=== PATIENT | female | born 1955 | race Caucasian/White ===

== ENCOUNTER → 2016-09-22 | Outpatient (CLI) | payer OTHER ==
[~2016-09-22] VITALS: Ht 162.6 cm; Wt 88.9 kg
[2016-09-22] VITALS (13 sets, daily range): BP systolic 94–126; BP diastolic 63–81
[~2016-09-22] MED LIST: AMLO2.5T PO; ANAS1TAB3 PO; ARIP2TAB PO; ASPI81TA2 PO; ATOR10TA60 PO; BENZ100C2 PO; BUSP10TA PO; BUSP30TA PO; DULO20CA PO; ERGO2000 PO; FENTANYL PF 250 MCG/5 ML VIAL. IV ONE; FENTANYL PF 250 MCG/5 ML VIAL. ONE; FURO20TA3 PO; HYDR-2678 PO; HYDR25TA PO; HYOS0.124 PO; LIDOCAINE 1% / SOD BICARB 8.4% 20 ML VIAL. IJ ONE; LORA0.5T PO; LORAZEPAM 2 MG/ML VIAL IV ONE; LOSA1TAB18 PO; METO25TA2 PO; MIDAZOLAM HCL/PF 5 MG/5 ML VIAL IV ONE; MIDAZOLAM HCL/PF 5 MG/5 ML VIAL ONE; ONDA-36 PO; ONDA4TAB7 PO; OXYC1TAB7 PO; PANT40TA3 PO; SPIR25TA3 PO; VALA500T PO; VITA1CAP PO; vitamin e
[2016-09-22 07:32] LABS: BASO # 0.1 x10^3/uL (0.0-0.2); BASO % 1 % (0-3); EOS % 6 % (0-3); HEMATOCRIT 39.8 % (36.0-47.0); HEMOGLOBIN 13.3 g/dL (12.0-15.5); LYMPH # 1.4 x10^3/uL (1.0-4.8); LYMPH % 22 % (24-48); MEAN CORPUSCULAR HEMOGLOBIN 31 pg (25-35); MEAN CORPUSCULAR HGB CONC 34 g/dL (31-37); MEAN CORPUSCULAR VOLUME 93 fL (79-100); MONO % 12 % (0-9); NEUT % 60 % (31-73); PLATELET COUNT 316 x10^3/uL (140-400); RED BLOOD COUNT 4.27 x10^6/uL (3.50-5.40); RED CELL DISTRIBUTION WIDTH 15.1 % (11.5-14.5); WHITE BLOOD COUNT 6.3 x10^3/uL (4.0-11.0)
[2016-09-22 07:44] LABS: PROTHROMBIN TIME PATIENT 12.1 SEC (11.7-14.0)
--- NOTE | 2016-09-22 09:17 | PDOC ---
MODERATE SEDATION ASSESSMENT RISKS/ALTERNATIVES Risks/Alternatives Risks and alternatives of this type of sedation and procedure discussed with: RISK/ALTERNATIVES: Patient H & P ON CHART H & P H & P on chart and reviewed for co-morbid conditions and appropriate labs. H&P ON CHART: Yes STATUS PREG STATUS ASSESSED: Yes MEDS/ALLERGIES REVIEWED Meds/Allergies Reviewed Medications and Allergies including time and route of recently administered narcotics and sedatives. MEDS/ALLERGIES REVIEWED: Yes ASA RATING ASA RATING: II AIRWAY ASSESSMENT Airway Assessment Airway patency, oral function limitations, presence of caps, crowns, dentures, partials, and ability to extend neck assessed. AIRWAY ASSESSMENT: Yes MALLAMPATI SCORE MALLAMPATI SCORE: II PRE-SEDATION ASSESSMENT PRE-SEDATION ASSESSMENT: Yes CHELSEA ESPINOZA MD Sep 22, 2016 09:17
--- NOTE | 2016-09-22 09:18 | PDOC1 ---
History and Physical Date of Procedure Date of Admission History of Present Illness Reason for Visit Adult female with blastic lesions at T2 and C6 Past Medical History Past Medical History see nursing pre-op assessment Current Medications Current Medications Current Medications Midazolam HCl (Versed) 5 mg STK-MED ONCE .ROUTE ; Start 09/22/16 at 07:52; Stop 09/22/16 at 07:53; Status DC Fentanyl Citrate (Fentanyl 5ml Vial) 250 mcg STK-MED ONCE .ROUTE ; Start at 07:52; Stop 09/22/16 at 07:53; Status DC Lidocaine/Sodium Bicarbonate (Buffered Lidocaine 1%) 20 ml STK-MED ONCE IJ ; Start 09/22/16 at 07:53; Stop 09/22/16 at 07:54; Status DC Lorazepam (Ativan) 1 mg 1X ONCE IV Last administered on 09/22/16t 08:44; Start 09/22/16 at 08:30; Stop 09/22/16 at 08:31; Status DC Lidocaine/Sodium Bicarbonate (Buffered Lidocaine 1%) 20 ml 1X ONCE IJ ; Start 09/22/16 at 09:00; Stop 09/22/16 at 09:01; Status DC Midazolam HCl (Versed) 3 mg 1X ONCE IV ; Start 09/22/16 at 09:00; Stop at 09:01; Status DC Fentanyl Citrate (Fentanyl 5ml Vial) 150 mcg 1X ONCE IV ; Start 09/22/16 at 09: 00; Stop 09/22/16 at 09:01; Status DC Active Scripts Active Reported Atorvastatin Calcium 10 Mg Tablet 1 Tab PO DAILY Abilify (Aripiprazole) 2 Mg Tablet 2 Mg PO DAILY Vitamin B Complex 1 Each Capsule 1 Each PO DAILY [vitamin e] Valacyclovir (Valacyclovir Hcl) 500 Mg Tablet 1,000 Mg PO Q12HR Spironolactone 25 Mg Tablet 25 Mg PO DAILY Ondansetron Hcl 8 Mg Tablet 8 Mg PO Q8HRS PRN Losartan-Hctz 100-12.5 Mg Tab (Losartan/Hydrochlorothiazide) 1 Each Tablet 1 Each PO DAILY Hyoscyamine Sulfate 0.125 Mg Tablet 0.125 Mg PO PRN Furosemide 20 Mg Tablet 20 Mg PO DAILY Vitamin D2 (Ergocalciferol (Vitamin D2)) 2,000 Unit Tablet 2,000 Unit PO DAILY Buspirone Hcl 10 Mg Tablet 10 Mg PO BID Benzonatate 100 Mg Capsule 100 Mg PO TID PRN Arimidex (Anastrozole) 1 Mg Tablet 1 Mg PO DAILY Lorazepam 0.5 Mg Tablet 0.5 Mg PO Q6HRS PRN Cymbalta (Duloxetine Hcl) 20 Mg Capsule.dr 1 Tab PO BID Protonix (Pantoprazole Sodium) 40 Mg Tablet.dr 1 Tab PO BID Allergies Allergies: Coded Allergies: Tetracyclines (Verified Allergy, Unknown, 09/22/16) adhesive tape (Verified Allergy, Unknown, 09/22/16) Physical Exam Vital Signs Vital Signs Date Time Temp Pulse Resp B/P Pulse Ox O2 Delivery O2 Flow Rate FiO2 09/22/16 09:10 99 15 91 Nasal Cannula 2.0 09/22/16 07:45 98.1 112/81 98.1 Other see nursing pre-op assessment Assessment Assessment Blastic Bone Lesions Problems: Plan Plan Bx of T2 and/or C6 CHELSEA ESPINOZA MD Sep 22, 2016 09:18
--- NOTE | 2016-09-22 09:21 | PDOC ---
BRIEF OPERATIVE NOTE Pre-Op Diagnosis Blastic bone lesions at C6 and T2 Post-Op Diagnosis same Procedure Performed T2 Bone Bx Surgeon Magui Anesthesia Type: Conscious Sedation Specimens Obtained 1 x 10 g core - excellent sampling Findings C6 blastic lesion left paracentral involving the pedicle. Pedicle is too small to accomodate needle safely for posterior biopsy. This lesions could be biopsied from an anterior approach but would be higher risk due to proximity of carotic and vertebral arteries. T2 blastic lesion involving the right pedicle appears stable and was biopsied with a 10g automated bone drill with excellent tissue sample. Complications No immediate CHELSEA ESPINOZA MD Sep 22, 2016 09:21
--- NOTE | 2016-09-22 10:12 | RAD ---
Procedure: CT-guided biopsy of T2 Clinical Indication: 60-year-old with blastic lesions at T2 and C6. The lesion at C6 is unsuitable for posterior biopsy, and is high risk for anterior biopsy. Lesion at T2 is been previously biopsied and was nondiagnostic. Repeat biopsy at T2 is warranted. Sedation: Conscious sedation was administered for 17 minutes. The patient was monitored by a qualified independent observer throughout the time of sedation. Please refer to the medical record for exact doses of medications utilized to achieve moderate sedation. Antibiotics: None Sterility: The procedure was performed in its entirety using appropriate elements of sterile technique. Consent: The procedure was explained in its entirety to the patient or the patients designated circulation sales representative by a member of the treatment team, including a discussion of the risks, benefits and commonly accepted alternatives to the procedure, as well as the expected consequences of no therapy whatsoever. Discussion of the risks included, but was not limited to, those that are most frequent and those that are rare but possibly severe or life-threatening, as well as the possibility of unforeseen complications. Technique and Findings: Following informed consent, the patient was prepped and draped in usual sterile fashion. Preliminary CT scan of the area of interest was performed. 1% lidocaine was used to achieve local anesthesia. A small dermatotomy was made. Under periodic CT surveillance, an automated 10-gauge bone biopsy drill was advanced into the right T2 pedicle to achieve a 1.5 cm 10-gauge bone core which was preserved in formalin. Hemostasis was achieved with manual compression after removal of the needle. Complications: No immediate Impression: 1. CT-guided biopsy of a blastic lesion within the right T2 pedicle using a 10-gauge automated bone core biopsy system with excellent tissue specimen. PQRS Compliance Statement: One or more of the following individualized dose reduction techniques were utilized for this examination: 1. Automated exposure control 2. Adjustment of the mA and/or kV according to patient size 3. Use of iterative reconstruction technique
== END | disposition home or self-care (01) ==
LOC: INTRAD 07:11
PROVIDERS: ATTEND Internal Medicine Hematology & Oncology
DX: M89.9 Disorder of bone, unspecified (principal); E78.00 Pure hypercholesterolemia, unspecified; I10 Essential (primary) hypertension; K21.9 Gastro-esophageal reflux disease without esophagitis; F41.9 Anxiety disorder, unspecified; F32.9 Major depressive disorder, single episode, unspecified; Z98.51 Tubal ligation status; Z90.49 Acquired absence of other specified parts of digestive tract; Z79.01 Long term (current) use of anticoagulants
CPT/HCPCS: 20225; 36415; 77012; 85027; 85610; C1892; J2060; J2250; J3010

== ENCOUNTER 2017-07-09 07:08 | Outpatient (CLI) | payer BC ==
[2017-07-09 07:51] LABS: ADD MAN DIFF? NO
[2017-07-09 07:54] LABS: BASO # 0.1 x10^3/uL (0.0-0.2); BASO % 1 % (0-3); EOS # 0.3 x10^3/uL (0.0-0.7); EOS % 4 % (0-3); HEMATOCRIT 37.6 % (36.0-47.0); HEMOGLOBIN 12.7 g/dL (12.0-15.5); LYMPH # 1.8 x10^3/uL (1.0-4.8); LYMPH % 25 % (24-48); MEAN CORPUSCULAR HEMOGLOBIN 33 pg (25-35); MEAN CORPUSCULAR HGB CONC 34 g/dL (31-37); MEAN CORPUSCULAR VOLUME 96 fL (79-100); MONO # 0.6 x10^3/uL (0.0-1.1); MONO % 8 % (0-9); NEUT # 4.5 x10^3uL (1.8-7.7); NEUT % 62 % (31-73); PLATELET COUNT 322 x10^3/uL (140-400); RED BLOOD COUNT 3.91 x10^6/uL (3.50-5.40); WHITE BLOOD COUNT 7.3 x10^3/uL (4.0-11.0)
[2017-07-09 08:02] LABS: PROTHROMBIN TIME PATIENT 12.5 SEC (11.7-14.0)
[2017-07-09] MEDS ORDERED: MIDAZOLAM HCL/PF 5 MG/5 ML VIAL. (08:24)
[2017-07-09] MEDS ORDERED: fentaNYL PF VIAL 100 MCG/2 ML VIAL ×3 (08:24→09:42)
[2017-07-09] MEDS ORDERED: LIDOCAINE WITH 8.4% SOD BICARB 3 ML DISP.SYRIN. IJ (08:32)
[2017-07-09] MEDS: LIDOCAINE WITH 8.4% SOD BICARB 3 ML DISP.SYRIN. IJ (09:50)
[2017-07-09] MEDS: fentaNYL PF VIAL 100 MCG/2 ML VIAL IV (09:53)
[2017-07-09] MEDS: MIDAZOLAM HCL/PF 5 MG/5 ML VIAL. IV (09:54)
[2017-07-09] MEDS ORDERED: oxyCODONE/APAP 5/325 1 TAB TABLET (10:38)
[2017-07-09] MEDS: oxyCODONE/APAP 5/325 1 TAB TABLET PO (10:42)
== END 2017-07-09 11:11 | disposition home or self-care (01) ==
LOC: INTRAD 07:08
DX: M89.9 Disorder of bone, unspecified (principal); E78.00 Pure hypercholesterolemia, unspecified; I10 Essential (primary) hypertension; Z98.890 Other specified postprocedural states; Z85.3 Personal history of malignant neoplasm of breast; Z98.51 Tubal ligation status; Z88.1 Allergy status to other antibiotic agents; Z91.048 Other nonmedicinal substance allergy status
CPT/HCPCS: 20225; 36415; 77012; 85025; 85610; 88307; 88311; 88341; 88342; 99152; 99153; J2250; J3010